=== PATIENT | male | born 1945 | race Caucasian/White ===

== ENCOUNTER 2020-09-05 07:57 | Emergency (ER) | payer MEDICARE ==
[~2020-09-05] VITALS: Ht 172.7 cm; Wt 99.0 kg
[2020-09-05] MEDS ORDERED: TAMS-11 PO (08:14)
[2020-09-05] MEDS ORDERED: MECL-101 PO (08:14)
[2020-09-05] MEDS ORDERED: ERGO500017 PO (08:14)
[2020-09-05] MEDS ORDERED: ALPR0.254 PO (08:14)
[2020-09-05] MEDS ORDERED: BENA20TA54 PO (08:14)
[2020-09-05] MEDS ORDERED: TRAZ-175 PO (08:14)
[2020-09-05] MEDS ORDERED: BENZ-17 PO (08:14)
[2020-09-05 09:04] LABS: BASOPHILS % (AUTO) 2 % (0-1); EOSINOPHILS % (AUTO) 2 % (1-7); LYMPHOCYTES % (AUTO) 17 % (22-44); MEAN CORPUSCULAR HEMOGLOBIN 31.8 pg (27.5-34.5); MEAN CORPUSCULAR HGB CONC 33.5 g/dL (33.2-36.2); MEAN PLATELET VOLUME 7.7 fL (7.4-10.4); MONOCYTES % (AUTO) 6 % (2-9); NEUTROPHILS % (AUTO) 74 % (42-75); PLATELET COUNT 261 x10^3/uL (130-400); RED BLOOD COUNT 4.46 x10^6/uL (4.38-5.82); RED CELL DISTRIBUTION WIDTH 14.5 % (9.4-14.8)
--- NOTE | 2020-09-05 09:04 | NUR ---
BREAK RN: PT RESTING ON GURNEY. PT STATES HE IS COLD. WARM BLANKET PROVIDED. ENCOURAGED URINATION FOR UA, PT UNABLE TO URINATE AT THIS TIME. VSS. NAD. CALL LIGHT W/IN REACH.
[2020-09-05 09:07] LABS: MD NO
[2020-09-05 09:14] LABS: ANION GAP 7 mmol/L (5-15); CALCIUM 9.2 mg/dL (8.5-10.1); CHLORIDE 110 mmol/L (98-107); CREATININE 1.05 mg/dL (0.7-1.3)
--- NOTE | 2020-09-05 09:26 | NUR ---
PT TO MRI, AWAITNG UA SAMPLE.
[2020-09-05] MEDS ORDERED: METHOCARBAMOL 750 MG TABLET PO ONE (09:30)
[2020-09-05 10:05] VITALS: BP 109/79
--- NOTE | 2020-09-05 10:05 | NUR ---
PT REURNED FROM MRI, TOLERATED PO CHALLENGE WITHOUT NV, UPRIGHT ON GURNEY AWAKE & MORE COMFORTABLE, RESPONDS APPROP TO STAFF, NAD AT REST, CALL LIGHT WITHIN REACH.
[2020-09-05] MEDS ORDERED: METHOCARBAMOL 750 MG TABLET ONE (10:10)
--- NOTE | 2020-09-05 12:09 | NUR ---
Patient given discharge instructions and they have confirmed that they understand the instructions. Patient left via WC accompanied by [employer].
== END 2020-09-05 12:10 | disposition home or self-care (01) ==
LOC: ED 08:56
DX: R42 Dizziness and giddiness (principal); G89.29 Other chronic pain; R94.31 Abnormal electrocardiogram [ECG] [EKG]
CPT/HCPCS: 36415; 70551; 80048; 83735; 85025; 93005; 99285